=== PATIENT | female | born 1955 | race Caucasian/White ===

== ENCOUNTER 2016-12-05 09:57 | Emergency (ER) | payer MEDICARE ==
--- NOTE | 2016-12-05 10:12 | ER Document Report ---
ED Medical Screen (RME) - General Chief Complaint: High Blood Pressure Stated Complaint: BLOOD CONCERNS Notes: Patient is concerned because her blood pressure keeps going up and down. She has hypertension and is currently taking clonidine, metoprolol, and spironolactone for her blood pressure. Saw her primary care provider about her blood pressure earlier last week. She also had a fall last night getting off of the commode and hit her left ribs which are now tender. TRAVEL OUTSIDE OF THE [place] IN LAST 30 DAYS: No Past Medical History Renal/ Medical History: Denies: Hx Peritoneal Dialysis Physical Exam - Vital signs Vitals: Temp Pulse Resp BP Pulse Ox 97.7 F 74 14 152/81 H 97 12/05/16 10:01 12/05/16 10:01 12/05/16 10:01 12/05/16 10:01 12/05/16 10:01 Course - Vital Signs Vital signs: Temp Pulse Resp BP Pulse Ox 97.7 F 74 14 152/81 H 97 12/05/16 10:01 12/05/16 10:01 12/05/16 10:01 12/05/16 10:01 12/05/16 10:01
[2016-12-05 10:29] LABS: ABSOLUTE BASOPHILS # (AUTO) 0.1 10^3/uL (0.0-0.2); ABSOLUTE EOSINOPHILS # (AUTO) 0.1 10^3/uL (0.0-0.6); ABSOLUTE LYMPHOCYTES (AUTO) 1.2 10^3/uL (0.5-4.7); ABSOLUTE MONOCYTES (AUTO) 0.8 10^3/uL (0.1-1.4); ABSOLUTE NEUT (AUTO) 5.9 10^3/uL (1.7-8.2); EOSINOPHILS % (AUTO) 0.6 % (0-6); HEMATOCRIT 43.6 % (36.0-47.0); HEMOGLOBIN 14.9 g/dL (12.0-15.5); HGB HCT DIFFERENCE 1.1; LYMPHOCYTES % (AUTO) 15.4 % (13-45); MEAN CORPUSCULAR HEMOGLOBIN 29.4 pg (27.0-33.4); MEAN CORPUSCULAR HGB CONC 34.3 g/dL (32.0-36.0); MEAN CORPUSCULAR VOLUME 86 fl (80-97); MONOCYTES % (AUTO) 10.3 % (3-13); RED BLOOD COUNT 5.08 10^6/uL (3.72-5.28); RED CELL DISTRIBUTION WIDTH 14.7 % (11.5-14.0); SEGMENTED NEUTROPHILS % (AUTO) 72.7 % (42-78); WHITE BLOOD COUNT 8.1 10^3/uL (4.0-10.5)
[2016-12-05 10:44] LABS: ALANINE AMINOTRANSFERASE 24 U/L (9-52); ALBUMIN 4.1 g/dL (3.5-5.0); ALKALINE PHOSPHATASE 71 U/L (38-126); ANION GAP 14 (5-19); ASPARTATE AMINO TRANSFERASE 21 U/L (14-36); BILIRUBIN,DIRECT 0.2 mg/dL (0.0-0.4); BILIRUBIN,TOTAL 0.6 mg/dL (0.2-1.3); BLOOD UREA NITROGEN 13 mg/dL (7-20); CARBON DIOXIDE 25 mmol/L (22-30); CHLORIDE 105 mmol/L (98-107); CREATININE RESULT 0.81 mg/dL (0.52-1.25); GLUCOSE 104 mg/dL (75-110); POTASSIUM 4.4 mmol/L (3.6-5.0); SODIUM 143.8 mmol/L (137-145); TOTAL PROTEIN 6.3 g/dL (6.3-8.2)
[2016-12-05] MEDS ORDERED: ACETAMINOPHEN 325 MG TABLET PO ONE (10:47)
--- NOTE | 2016-12-05 11:38 | ER Document Report ---
ED General - General Chief Complaint: High Blood Pressure Stated Complaint: BLOOD CONCERNS Time seen by provider: 10:40 Mode of Arrival: Ambulatory Information source: Patient Notes: 61-year-old female who reports she's had blood pressures in the 220/110 range for the past several mornings. She says she saw her primary care provider and states fairy about this and received a prescription for 2 doses of clonidine which she has taken. Last dose was last night she reports blood pressure was better this morning but she has no further doses and reports that her primary care providers without a better town for at least a week. 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 The patient reports she is intermittently noticed numbness in the left arm and leg for the past month and chronically has left upper and lower extremity weakness and drooping in her right eye from her prior aneurysm. She reports no new weakness to any extremity difficulty with speech or swallowing or visual disturbances. She complains of diffuse headache not worse than her baseline. She denies chest pain, shortness breath, abdominal pain, nausea or vomiting. She reports she fell yesterday causing simply by losing her balance and landed on her left side and complains now about pain in the left mid back just below the scapula. He reports a history of lung cancer and has been told she is not a candidate for surgery because of underlying cardiac issues but has started chemotherapy with physicians in [place]. Physical Exam: General: Alert, appears well. HEENT: Normocephalic. Atraumatic. PERRLA. Extraocular movements intact. Oropharynx clear. No otorhinorrhea Neck: Supple. Non-tender. No JVD no adenopathy good range of motion without discomfort no nuchal rigidity Respiratory: No respiratory distress. Clear and equal breath sounds bilaterally. Mildly tender to palpation underneath the scapula on the left which localizes patient's pain. There is no ecchymosis swelling crepitance or fluctuance in the area Cardiovascular: Slightly irregular PMI not displaced. Abdominal: Normal Inspection. Soft, non-tender. No distension. Normal Bowel Sounds. Back: Non-tender. No deformity or step off. Extremities: Moves all four extremities. Upper extremities: Normal inspection. Non-tender. Normal color. Normal ROM. Normal temperature. Lower extremities: Normal inspection. Non-tender. No edema. Normal color. Normal ROM. Normal temperature. Neurological: Cranial nerves III-XII grossly intact bilaterally. With the exception of slight drooping the upper eyelid on the right which patient reports is chronic Strength 5/5 throughout. Sensation intact to light touch. Normal cognition. AAOx4. Normal speech. Psychological: Normal affect. Normal Mood. Skin: Warm. Dry. Normal color. TRAVEL OUTSIDE OF THE [place] IN LAST 30 DAYS: No - Related Data Allergies/Adverse Reactions: No Known Allergies Allergy (Unverified 12/05/16 11:18) Past Medical History - Social History Smoking Status: Current Every Day Smoker Chew tobacco use (# tins/day): No Frequency of alcohol use: None Drug Abuse: None Family History: Reviewed & Not Pertinent - Past Medical History Cardiac Medical History: Reports: Hx Congestive Heart Failure, Hx Coronary Artery Disease - 4 cardiac stents, Hx Hypertension, Hx Peripheral Vascular Disease - Thoracic aortic stent Renal/ Medical History: Denies: Hx Peritoneal Dialysis Malignancy Medical History: Reports: Hx Lung Cancer Past Surgical History: Reports: Hx Hysterectomy, Hx Open Heart Surgery - stents , Hx Pancreatic Surgery - biopsy - Immunizations Hx Diphtheria, Pertussis, Tetanus Vaccination: Yes Review of Systems - Review of Systems Constitutional: denies: Chills, Fever, Weakness EENT: denies: Ear pain, Throat pain Cardiovascular: See HPI. denies: Dyspnea Respiratory: denies: Cough, Short of breath Gastrointestinal: denies: Abdominal pain, Diarrhea, Nausea, Vomiting, Blood in vomit, Black stools, Rectal bleeding Genitourinary: denies: Burning, Dysuria Female Genitourinary: Post menopausal Musculoskeletal: See HPI. denies: Leg swelling, Ankle swelling Skin: denies: Rash Hematologic/Lymphatic: denies: Swollen glands Neurological/Psychological: See HPI Physical Exam - Vital signs Vitals: Temp Pulse Resp BP Pulse Ox 97.7 F 74 14 152/81 H 97 12/05/16 10:01 12/05/16 10:01 12/05/16 10:01 12/05/16 10:01 12/05/16 10:01 Course - Re-evaluation Re-evalutation: 12/05/16 11:38 Patient is reporting intermittent numbness left arm and leg but she is neurologically intact here and I don't believe that presentation truly represents TIA or CVA. The presenting issues today or pain in her left midback related to her fall and this in no way is suggestive of acute coronary syndrome or pulmonary embolism. I do believe it is consistent with musculoskeletal pain. She is also concerned about her blood pressure being high and reports that the clonidine she was recently prescribed work well for improved control of that in addition to the metoprolol she is on as an outpatient but she has no more of it. I will prescribe her one week's worth until her care provider returns to [facility]. Of asked her to follow closely with them as well as with her cancer doctors in [place] this she apparently has not had chemotherapy several weeks. - Vital Signs Vital signs: Temp Pulse Resp BP Pulse Ox 97.7 F 74 14 173/90 H 97 12/05/16 10:01 12/05/16 10:01 12/05/16 10:01 12/05/16 10:45 12/05/16 10:01 - Laboratory Result Diagrams: 12/05/16 10:15 12/05/16 10:15 Laboratory results interpreted by me: 12/05/16 10:15 RDW 14.7 H - Diagnostic Test Radiology reviewed: Image reviewed, Reports reviewed - EKG Interpretation by Me Additional EKG results interpreted by me: 12/05/16 11:38 EKG reviewed by myself shows sinus rhythm at 70 LVH pattern no acute changes Discharge - Discharge Clinical Impression: Hypertension Qualifiers: Hypertension type: essential hypertension Qualified Code(s): I10 - Essential ( primary) hypertension Back pain Qualifiers: Back pain location: thoracic back pain Chronicity: acute Back pain laterality: left Qualified Code(s): M54.6 - Pain in thoracic spine Clinical Impression: (Ruled Out): Chest pain Condition: Stable Disposition: HOME, SELF-CARE Additional Instructions: High Blood Pressure When your blood pressure was taken today it was elevated. Today's reading was . Pre-hypertension/Hypertension: The patient has been informed that they may have pre-hypertension or Hypertension based on a blood pressure reading in the emergency department. I recommend that the patient call the primary care provider listed on their dischargge instructions or a physician of their choice this wee to arrage follow up for further evaluation of possible pre- hypertension or Hypertension. Sometimes, stress or illness causes a temporary elevation of your blood pressure. We suggest that you get your blood pressure measured three more times during the next few days to see if this is more than a temporary abnormality. If your blood pressure is greater than 150/90 on each occasion, you must have treatment. Some simple things you can do to help are: If you have blood pressure medicine but aren't using it regularly, start taking it again. Get some aerobic exercise for at least 20 minutes on a daily basis. (See your doctor before beginning a new exercise program.) Eat a low-fat diet. Lose excess weight. Avoid salty foods and avoid adding salt to any of the foods you eat. Avoid diet pills, decongestants, "energizing" herbs, and other medicines that elevate blood pressure. If left untreated, hypertension greatly enhances your risk for developing heart disease and strokes. Please don't ignore this problem. Follow-up with your provider next week for your blood pressure Following her cancer doctors in [place] as soon as possible for follow-up of your lung cancer Prescriptions: Clonidine HCl [Catapres 0.1 mg Tablet] 0.1 mg PO Q12 #20 tablet
[2016-12-05 12:02] VITALS: BP 116/104
--- NOTE | 2016-12-05 13:26 | EKG REPORT ---
SEVERITY:- ABNORMAL ECG - SINUS RHYTHM PROBABLE LVH WITH SECONDARY REPOL ABNRM : Confirmed by: Keagan Altman MD 05-Dec-2016 13:26:15
== END 2016-12-05 12:12 | disposition home or self-care (01) ==
LOC: ER 09:57
DX: I11.0 Hypertensive heart disease with heart failure (principal); M54.6 Pain in thoracic spine; F17.200 Nicotine dependence, unspecified, uncomplicated; I50.9 Heart failure, unspecified; I25.10 Atherosclerotic heart disease of native coronary artery without angina pectoris; Z85.118 Personal history of other malignant neoplasm of bronchus and lung; Z90.710 Acquired absence of both cervix and uterus
CPT/HCPCS: 93005; 99284; 36415; 85025; 80053; 71101; 93010; A9270

== ENCOUNTER 2016-12-17 18:09 | Emergency (ER) | payer MEDICARE ==
[2016-12-17] MEDS ORDERED: DEXAMETHASONE 4 MG TABLET PO ONE (19:33)
[2016-12-17] MEDS ORDERED: HYDROCODONE/ACETAMINOPHEN 5-325 MG 6 TAB/DSPK PO PRN (19:36)
[2016-12-17] MEDS ORDERED: ONDANSETRON ODT 4 MG TAB (6 TAB/DSPK) PO PRN (19:36)
--- NOTE | 2016-12-17 20:00 | ER Document Report ---
ED General - General Chief Complaint: Fall Stated Complaint: ALTERED MENTAL STATUS Notes: Patient is a 61-year-old female past medical history of lung cancer with been off chemotherapy since May who presents with concerns of a fall. States that when she was walking back from the bathroom last night she tripped and fell striking her head on an end table. Since that time she has had a dull, constant, mild pain to her left posterior scalp. She notes that she's had increasingly frequent falls and her daughter notes increased confusion over the last several months. Patient notes in particular that her left lower extremity seems often "give way or be difficult with me". She has not seen her primary care doctor regarding today's concerns. Nothing is known to improve or worsen her symptoms. TRAVEL OUTSIDE OF THE [place] IN LAST 30 DAYS: No - Related Data Allergies/Adverse Reactions: tramadol Allergy (Verified 12/17/16 18:20) Home Medications: Current Home Medications Albuterol Sulfate [Ventolin Hfa] 1 - 2 puff IH Q4 PRN 12/17/16 [History] Biotin 10,000 mcg PO DAILY 12/17/16 [History] Clonidine HCl [Catapres 0.1 mg Tablet] 0.1 mg PO PRN PRN 12/17/16 [History] Cyanocobalamin (Vitamin B-12) [Vitamin B-12 50 mcg Tablet] 50 mcg PO DAILY 12/17 [History] Docusate Sodium [Doc-Q-Lace] 100 mg PO PRN PRN 12/17/16 [History] Gabapentin 300 mg PO PRN PRN 12/17/16 [History] Metoprolol Succinate [Toprol XL 100 mg Tablet] 100 mg PO BID 12/17/16 [History] Multivit-Min/Iron Fum/Folic AC [Deity-Tevxlfa-Uyamzwiy Tablet] 1 tab PO DAILY [History] Paroxetine HCl [Paxil 20 mg Tablet] 40 mg PO DAILY 12/17/16 [History] Simvastatin [Zocor 20 mg Tablet] 20 mg PO QHS 12/17/16 [History] Spironolactone 25 mg PO DAILY 12/17/16 [History] Past Medical History - General Information source: Patient - Social History Smoking Status: Current Every Day Smoker Frequency of alcohol use: None Drug Abuse: None Lives with: Family Family History: Reviewed & Not Pertinent - Past Medical History Cardiac Medical History: Reports: Hx Congestive Heart Failure, Hx Coronary Artery Disease - 4 cardiac stents, Hx Hypercholesterolemia, Hx Hypertension, Hx Peripheral Vascular Disease - Thoracic aortic stent Renal/ Medical History: Denies: Hx Peritoneal Dialysis Malignancy Medical History: Reports: Hx Lung Cancer Past Surgical History: Reports: Hx Hysterectomy, Hx Open Heart Surgery - stents , Hx Pancreatic Surgery - biopsy - Immunizations Hx Diphtheria, Pertussis, Tetanus Vaccination: Yes Review of Systems - Review of Systems Notes: Constitutional: Negative for fever. HENT: Negative for sore throat. Eyes: Negative for visual changes. Cardiovascular: Negative for chest pain. Respiratory: Negative for shortness of breath. Gastrointestinal: Negative for abdominal pain, vomiting or diarrhea. Genitourinary: Negative for dysuria. Musculoskeletal: Negative for back pain. Positive for head pain Skin: Negative for rash. Neurological: Negative for headaches, weakness or numbness. 10 point ROS negative except as marked above and in HPI. Physical Exam - Vital signs Vitals: Temp Pulse Resp BP Pulse Ox 98.3 F 74 20 192/73 H 97 12/17/16 18:10 12/17/16 18:10 12/17/16 18:10 12/17/16 18:10 12/17/16 18:10 Interpretation: Hypertensive Notes: PHYSICAL EXAMINATION: GENERAL: Well-appearing, no acute distress. HEAD: Atraumatic, normocephalic. EYES: Pupils equal round and reactive to light, extraocular movements intact, sclera anicteric, conjunctiva are normal. ENT: nares patent, no oral pharyngeal trauma. No hemotympanum, no Jerome's sign , no raccoon eyes. NECK: No midline cervical spine tenderness. Patient able to move their head to 45 bilaterally without any discomfort. LUNGS: Breath sounds clear to auscultation bilaterally and equal. No wheezes rales or rhonchi. HEART: Regular rate and rhythm without murmurs. CHEST WALL: No ecchymosis over the chest wall. ABDOMEN: Soft, nontender, normoactive bowel sounds. No guarding, no rebound. No abdominal bruising EXTREMITIES: Normal range of motion, no pitting or edema. No long bone deformities. BACK: No midline spinal tenderness, step-offs, or deformities. NEUROLOGICAL: Face symmetric. Tongue protrudes midline. Extraocular motions intact. Pupils are 2 mm and equally reactive. Normal speech, normal gait. 5 out of 5 strength in both the distal and proximal upper and lower extremities bilaterally. Sensation is grossly intact throughout. Finger to nose testing normal. Pronator drift normal. PSYCH: Answers are somewhat delayed but she is otherwise alert and oriented 4. SKIN: Warm, Dry, normal turgor, no rashes or lesions noted. Course - Re-evaluation Re-evalutation: 12/17/16 20:02 Presentation of a well appearing elderly patient in no acute distress, vitals within normal limits after a mechanical mechanical fall. Patient denies a syncopal episode as the cause for today's fall. No focal neurologic deficits on exam, no evidence of basilar skull fracture on exam without evidence of hemotympanum, raccoon eyes, or periauricular hematoma. No papilledema. Patient is not on anticoagulation. GCS is 15. No loss of consciousness. No episodes of vomiting. However, based on patient's age a CT of the head has been obtained which is negative for any acute intracranial bleed. Unfortunately , this did show innumerable brain lesions which is likely the cause of her increasingly frequent falls. Likewise, patient was unable to be clinically cleared due to age by Chinese cervical spine criteria. A CT of the cervical spine was also obtained and likewise is negative for any acute fracture. No indication for further imaging of the cervical spine. Patient has no focal deformities or limited range of motion in any joint space. Chest and abdominal exam are benign without any focal tenderness, shortness of breath, or bruising over the chest or abdominal wall. Patient has no flank tenderness. There is no obvious findings on trauma exam today and therefore no further imaging or evaluation will be obtained at this time. I discussed with the new lesions to the brain secondary to her underlying lung cancer. She will be started on decadron 4mg q6. Pain and nausea control will be provided. At this time will discharge with return precautions and follow-up recommendations. Verbal discharge instructions given a the bedside and opportunity for questions given. Medication warnings reviewed. Patient is in agreement with this plan and has verbalized understanding of return precautions and the need for primary care follow-up in the next 24-72 hours. - Vital Signs Vital signs: Temp Pulse Resp BP Pulse Ox 98.3 F 77 20 199/82 H 96 12/17/16 20:23 12/17/16 20:23 12/17/16 20:23 12/17/16 20:23 12/17/16 20:23 - Diagnostic Test Radiology reviewed: Image reviewed, Reports reviewed Discharge - Discharge Clinical Impression: Brain metastases, Essential hypertension Falls Qualifiers: Encounter type: initial encounter Qualified Code(s): W19.XXXA - Unspecified fall, initial encounter Condition: Good Disposition: HOME, SELF-CARE Additional Instructions: Unfortunately, your CT scan today shows that you have metastatic brain cancer. You will need to contact our local oncologist Dr. Montes's office on Monday after 830am. They are expecting your call and will see you on Monday. Please call either [phone] or [phone]. Ask to speak with Kermit Rodriguez who is the new patient coordinator. Tell them that spoke with and wants you seen on Monday. You are being started on 3 medications 1. Dexamethasone 4 mg every 6 hours. This is to help the swelling around some of the lesions in her brain and should help with your headache. 2. Jackson 5mg. You can take 1-2 tablets every 6 hours as needed for severe pain. 3. Zofran 4 mg dissolving tablets. You can use 1-2 tablets every 6 hours as needed for nausea. Please come back to the emergency room immediately if you develop persistent vomiting, pass out, hit your head again, or have any other symptoms that are worrisome to you. Prescriptions: Hydrocodone/Acetaminophen [Jackson 5-325 Tablet] 1 - 2 tab PO Q6HP PRN #20 tablet PRN Reason: Dexamethasone [Decadron 4 Mg Tablet] 4 mg PO Q6H #30 tablet Ondansetron [Zofran Odt 4 mg Tablet] 1 - 2 tab PO Q6H PRN #15 tab.rapdis PRN Reason: For Nausea/Vomiting
[2016-12-17 20:29] VITALS: BP 199/82
== END 2016-12-17 20:31 | disposition home or self-care (01) ==
LOC: ER 18:09
DX: C79.31 Secondary malignant neoplasm of brain (principal); I10 Essential (primary) hypertension; R41.82 Altered mental status, unspecified; Z85.118 Personal history of other malignant neoplasm of bronchus and lung; W01.190A Fall on same level from slipping, tripping and stumbling with subsequent striking against furniture, initial encounter; Z79.899 Other long term (current) drug therapy; F17.200 Nicotine dependence, unspecified, uncomplicated
CPT/HCPCS: 99284; 70450; 72125; A9270 ×3